=== PATIENT | female | born 1970 | race Caucasian/White ===

== ENCOUNTER → 2017-03-30 | Day surgery (SDC) | payer OTHER ==
[~2017-03-30] MED LIST: ACETAMINOPHEN 500 MG TAB PO PRN; LIDOCAINE 1% 2 ML INJ ID PRN; LR 1,000 ML IV ONE; MIDAZOLAM 2 MG/2 ML VIAL IVP ONE; NALOXONE HCL 0.4 MG/ML INJ IVP PRN; ONDANSETRON 4 MG/2 ML VIAL IVP PRN; PROMETHAZINE HCL 25 MG/ML INJ IVP PRN; PROPOFOL 200 MG/20 ML VIAL ONE
--- NOTE | 2017-03-30 06:49 | PDANEPAE ---
ANE History of Present Illness 46 yo F w GERD here for EGD ANE Past Medical History - Cardiovascular History Hx Hypertension: No Hx Arrhythmias: No Hx Chest Pain: No Hx Coronary Artery / Peripheral Vascular Disease: No Hx CHF / Valvular Disease: No Hx Palpitations: No Cardiovascular History Comment: hx of murmur - Pulmonary History Hx COPD: No Hx Asthma/Reactive Airway Disease: No Hx Recent Upper Respiratory Infection: No Hx Oxygen in Use at Home: No Hx Sleep Apnea: No Sleep Apnea Screening Result - Last Documented: Negative - Neurologic History Hx Cerebrovascular Accident: No Hx Seizures: Yes Hx Dementia: No Neurologic History Comment: from [facility] hasn't had any seizures in 10 yrs - Endocrine History Hx Diabetes: No Endocrine History Comment: hypothyroidism - Renal History Hx Renal Disorders: No - Liver History Hx Hepatic Disorders: No - Neurological & Psychiatric Hx Hx Neurological and Psychiatric Disorders: Yes Neurological / Psychiatric History Comment: anixety. panic disorder - Cancer History Hx Cancer: No - Congenital Disorder History Hx Congenital Disorders: No - GI History GERD: moderate Hx Gastrointestinal Disorders: Yes Gastrointestinal History Comment: reflux. ibs - Other Health History Other Health History: wears reading glasses - Chronic Pain History Chronic Pain: No - Surgical History Prior Surgeries: previous egd. [place]. surgery as child ANE Review of Systems - Exercise capacity Exercise capacity: >=4 METS METS (RN): 4 METS ANE Patient History - Allergies Allergies/Adverse Reactions: NSAIDS (Non-Steroidal Anti-Inflamma Allergy (Verified 03/08/17 14:30) Other-Enter Comments ranitidine [From Zantac] Allergy (Verified 03/08/17 14:30) Hives Sulfa (Sulfonamide Antibiotics) Allergy (Verified 03/08/17 14:30) Hives - Home Medications Home medications: home medication list seen and reviewed Home Medications: Cymbalta 30 MG (*) 03/08/17 [Last Taken Unknown] Herbals/Supplements -Info Only 03/08/17 [Last Taken Unknown] Levothyroxine 03/08/17 [Last Taken Unknown] - NPO status NPO Status: no food or drink >8 hours - Anes Hx Anes Hx: post operative nausea and vomiting - Smoking Hx Smoking Status: Never smoked - Alcohol Use Alcohol Use: None - Family Anes Hx Family Anes Hx: none Family Hx Anesthesia Complications: none ANE Labs/Vital Signs - Vital Signs Vital Signs: reviewed preoperatively; see RN documention for details Height: 167.64 cm Weight: 81.647 kg ANE Physical Exam - Airway Neck exam: FROM Mallampati Score: Class 2 Mouth exam: normal dental/mouth exam - Pulmonary Pulmonary: no respiratory distress, clear to auscultation - Cardiovascular Cardiovascular: regular rate and rhythym, no murmur, rub, or gallop - ASA Status ASA Status: II ANE Anesthesia Plan Anesthesia Plan: GA with mask
[2017-03-30 07:35] VITALS: RESP 16
--- NOTE | 2017-03-30 08:10 | PDGENHP ---
History & Physical Chief Complaint: Heartburn Relevant Physical Exam: GEN: NAD. Cardiac: RRR. Lungs: CTA B. Abd: Soft, nt, nd
--- NOTE | 2017-03-30 08:30 | POSTOPPROG ---
Post Op Note Date of Operation: 03/30/17 Surgeon: Isaac Burrell Pre-op Diagnosis: Heartburn Post-op Diagnosis: Same Indication: Heartburn Procedure: EGD w/ bx Findings: esophagitis, hiatal hernia, gastritis, gastric polyps Inf/Abcess present in the surg proc area at time of surgery?: No
--- NOTE | 2017-03-30 09:11 | GPN ---
[f rep st] PROCEDURE NOTE PREPROCEDURE DIAGNOSIS: Heartburn. POSTPROCEDURE DIAGNOSES: 1. LA grade A esophagitis. 2. Small hiatal hernia. 3. Mild gastritis. 4. Gastric polyps. 5. Normal duodenum. PROCEDURE: EGD with biopsies. MEDICATIONS: Monitored anesthesia care. INDICATIONS: The patient is a 46-year-old female with a history of heartburn. She has had previous upper endoscopies, and is currently taking omeprazole 20 mg orally daily, as well as Pepcid in the evening. The risks and benefits of the procedure were discussed with the patient. Consent obtained . Risks include, but not limited to, bleeding, perforation, risks associated with sedation. The pa tient is ASA class 2. DESCRIPTION OF PROCEDURE: The ending endoscope inserted into the esophagus into stomach and second portion of the duodenum. The esophagus shows mild LA grade A esophagitis of the GE junction. The G E junction is located at 35 cm from the incisors. Biopsies were taken using cold biopsy forceps at the GE junction. She has a small hiatal hernia, which is best seen in one retroflexion from within the stomach. She has a mild antral gastritis, and biopsies were taken using cold biopsy forceps to evaluate for Helicobacter pylori. She has several small benign appearing fundic gland polyps in the stomach. Biopsies were taken using cold biopsy forceps. The duodenum and second portion is normal . Biopsies were taken using cold biopsy forceps to evaluate for celiac disease. IMPRESSION: 1. Mild LA grade A esophagitis of the gastroesophageal junction. 2. Small hiatal hernia. 3. Gastric polyps. 4. Mild gastritis. 5. Normal duodenum. RECOMMENDATIONS: 1. Discharge home with escort. 2. Advance diet as tolerated. 3. Continue acid suppression medications. 4. Follow up the final biopsy results. Results available within 10 days. Thank you for allowing me to participate in the care of your patient. Please do not hesitate to viktoriya neville with questions. /[id number]/MODL
[2017-03-30 09:37] VITALS: BP 110/73; PULSE 84; TEMP 97.9
[2017-03-30 10:05] VITALS: O2SAT 100
--- NOTE | 2017-03-30 20:54 | POSTANESTH ---
Post Anesthetic Evaluation Cardiovascular Status: Normal, Stable, Similar to Pre-Op Cond Respiratory Status: Normal, Stable, Similar to Pre-op Cond. Level of Consciousness/Mental Status: Can Participate in Eval, Alert and Oriented Pain Control: Adequate, Prn Tx Ordered Nausea/Vomiting Control: Adequate, Prn Tx Ordered Complications Possibly Related to Anesthesia: None Noted
== END | disposition home or self-care (01) ==
LOC: FSGY 06:25
PROVIDERS: ATTEND Internal Medicine Gastroenterology
PROC: 0DB68ZX Excision of Stomach, Via Natural or Artificial Opening Endoscopic, Diagnostic (ICD-10-PCS; principal; 2017-03-30 08:00)
PROC: 0DB48ZX Excision of Esophagogastric Junction, Via Natural or Artificial Opening Endoscopic, Diagnostic (ICD-10-PCS; principal; 2017-03-30 08:00)
PROC: 0DB98ZX Excision of Duodenum, Via Natural or Artificial Opening Endoscopic, Diagnostic (ICD-10-PCS; principal; 2017-03-30 08:00)
DX: K20.9 Esophagitis, unspecified (principal); K29.70 Gastritis, unspecified, without bleeding; K31.7 Polyp of stomach and duodenum; K44.9 Diaphragmatic hernia without obstruction or gangrene; E03.9 Hypothyroidism, unspecified
CPT/HCPCS: J2250; J2704